=== PATIENT | male | born 1960 | race Caucasian/White ===

== ENCOUNTER → 2022-07-12 | Day surgery (SDC) | payer BC ==
[~2022-07-12] MED LIST: Fentanyl 100 MCG/2 ML VIAL ONE; Iopamidol-M 300 61% 15 ML VIAL ONE; Lidocaine 1% PF 5 ML VIAL ONE; Midazolam HCl 5 mg/5 ml Vial ONE; Sodium Bicarbonate 2.5 MEQ/5 ML VIAL ONE
== END | disposition home or self-care (01) ==
LOC: CSHRAD 13:26
PROVIDERS: ATTEND Neurological Surgery
PROC: B02BYZZ Computerized Tomography (CT Scan) of Spinal Cord using Other Contrast (ICD-10-PCS; principal; 2022-07-12)
DX: M50.10 Cervical disc disorder with radiculopathy, unspecified cervical region (principal); M50.00 Cervical disc disorder with myelopathy, unspecified cervical region; R26.89 Other abnormalities of gait and mobility; M96.1 Postlaminectomy syndrome, not elsewhere classified; G56.03 Carpal tunnel syndrome, bilateral upper limbs; G56.23 Lesion of ulnar nerve, bilateral upper limbs; M62.81 Muscle weakness (generalized); F41.9 Anxiety disorder, unspecified; M19.90 Unspecified osteoarthritis, unspecified site; E78.00 Pure hypercholesterolemia, unspecified; F32.A Depression, unspecified; E11.9 Type 2 diabetes mellitus without complications; F17.200 Nicotine dependence, unspecified, uncomplicated; Z79.899 Other long term (current) drug therapy; Z79.84 Long term (current) use of oral hypoglycemic drugs
CPT/HCPCS: 62302; 72126; 99152; J2250; J3010; Q9967